=== PATIENT | male | born 1945 | race Caucasian/White ===

== ENCOUNTER 2017-05-21 08:26 | Outpatient (CLI) | payer MEDICARE, OTHER ==
[~2017-05-21 08:26] MED LIST: DULO60CA64 PO; ENAL5TAB PO; FENO134C PO; LAMO200T PO; LEVO50TA8 PO; NORCO10T PO; TERB250T11 PO
== END 2017-05-21 23:59 | disposition home or self-care (01) ==
LOC: DIABETIC 08:26
PROVIDERS: ATTEND Internal Medicine
DX: E11.9 Type 2 diabetes mellitus without complications (principal); I10 Essential (primary) hypertension
CPT/HCPCS: G0108

== ENCOUNTER 2017-08-18 04:10 | Outpatient (CLI) | payer MEDICARE, OTHER ==
[~2017-08-18 04:10] MED LIST changes: -TERB250T11 PO; +TERB250T4 PO
== END 2017-08-18 23:59 | disposition home or self-care (01) ==
LOC: DIABETIC 04:10
PROVIDERS: ATTEND Internal Medicine
DX: E11.9 Type 2 diabetes mellitus without complications (principal)
CPT/HCPCS: G0108

== ENCOUNTER 2019-10-01 14:36 | Emergency (ER) | payer MEDICARE, OTHER ==
[~2019-10-01] VITALS: Ht 180.3 cm; Wt 75.0 kg
[~2019-10-01 14:36] MED LIST changes: -DULO60CA64 PO; +DULO60CA65 PO; -LAMO200T PO; +LAMO200T10 PO
[2019-10-01 14:39] VITALS: BP 170/88
[2019-10-01] MEDS ORDERED: LIDOcaine 1% W/epiNEPHrine 1:200,000 10ml vial IJ ONE (16:15)
[2019-10-01] MEDS ORDERED: TETanus/Pertussis (Acell)/Diphther VAC/PF (Tdap-Adult) 0.5ml syringe IMVAC ONE (16:15)
== END 2019-10-01 17:34 | disposition home or self-care (01) ==
LOC: ER 14:36
DX: S02.2XXA Fracture of nasal bones, initial encounter for closed fracture (principal); S01.112A Laceration without foreign body of left eyelid and periocular area, initial encounter; S80.212A Abrasion, left knee, initial encounter; S80.211A Abrasion, right knee, initial encounter; M25.511 Pain in right shoulder; M47.892 Other spondylosis, cervical region; Z98.890 Other specified postprocedural states; W01.0XXA Fall on same level from slipping, tripping and stumbling without subsequent striking against object, initial encounter; Y93.89 Activity, other specified; Y92.89 Other specified places as the place of occurrence of the external cause; Y99.8 Other external cause status
CPT/HCPCS: 12013; 70450; 70486; 72125; 90471; 90715; 99285

== ENCOUNTER 2019-10-09 10:29 | Emergency (ER) | payer MEDICARE, OTHER ==
[~2019-10-09] VITALS: Ht 180.3 cm; Wt 76.0 kg
[2019-10-09 10:31] VITALS: BP 119/86
== END 2019-10-09 11:14 | disposition home or self-care (01) ==
LOC: ER 10:29
DX: S02.2XXD Fracture of nasal bones, subsequent encounter for fracture with routine healing (principal); S01.112D Laceration without foreign body of left eyelid and periocular area, subsequent encounter; S80.212D Abrasion, left knee, subsequent encounter; S80.211D Abrasion, right knee, subsequent encounter; W01.0XXD Fall on same level from slipping, tripping and stumbling without subsequent striking against object, subsequent encounter
CPT/HCPCS: 99281